=== PATIENT | female | born 1955 | race Caucasian/White ===

== ENCOUNTER 2020-09-25 13:47 | Emergency (ER) | payer OTHER ==
--- NOTE | 2020-09-25 15:28 | EDM.PDOC ---
ED HPI GENERAL MEDICAL PROBLEM - General Chief Complaint: Cardiovascular Problem Stated Complaint: LOW BP Time Seen by Provider: 09/25/20 15:10 Source of Information: Reports: Patient, Family, Old Records, RN History Limitations: Reports: No Limitations - History of Present Illness INITIAL COMMENTS - FREE TEXT/NARRATIVE: 64 yo female with chronic hypotension has midodrine to use prn. Lately, she has had to use it more than usual and it doesn't seem to be working. She has no other sx's of her low BP. She called her clinic and was told she had to go to the ER for this. She is on furosemide 40 mg daily and denies a hx of any renal dysfunction. No recent vomiting or diarrhea or pain or fever. Onset: Gradual Duration: Day(s):, Getting Worse Location: Reports: Generalized Quality: Reports: Other (no pain reported) Severity: Moderate Improves with: Reports: None Worsens with: Reports: Other (time) Context: Reports: Other (See HPI) Associated Symptoms: Reports: Malaise. Denies: Chest Pain, Fever/Chills, Nausea/Vomiting, Shortness of Breath, Syncope Treatments CHARGE ENTRY: Reports: Other (see below) (midodrine) - Related Data Allergies Allergy/AdvReac Type Severity Reaction Status Date / Time Penicillins Allergy Cannot Verified 09/25/20 14:30 Remember paper tapes Allergy Rash Uncoded 09/25/20 14:31 Home Meds: Home Meds Albuterol Sulfate [Proair Hfa] 2 puff INH Q4HR PRN 11/11/15 [History] Citalopram Hydrobromide [Celexa] 10 mg PO DAILY 11/11/15 [History] Fluticasone Propionate [Flonase] 2 spray NS DAILY 11/11/15 [History] Furosemide [Lasix] 40 mg PO DAILY 11/11/15 [History] Gabapentin [Neurontin] 600 mg PO TID 11/11/15 [History] Multivitamin [Multi-Vitamin Daily] 1 tab PO DAILY 11/11/15 [History] Simvastatin [Zocor] 40 mg PO BEDTIME 11/11/15 [History] metFORMIN [Glucophage] 1,000 mg PO BID 11/11/15 [History] traMADol [Ultram] 50 mg PO Q6HR PRN 11/11/15 [History] Apixaban [Eliquis] 5 mg PO DAILY 09/25/20 [History] Aspirin [Halfprin] 81 mg PO DAILY 09/25/20 [History] Digoxin 0.125 mg PO DAILY 09/25/20 [History] Iron Ps Cmplx/Vit B12/Fa [Poly-Iron 150 Forte] 1 cap PO DAILY 09/25/20 [History] Magnesium Oxide [Magnesium] 400 mg PO DAILY 09/25/20 [History] Midodrine 10 mg PO TID 09/25/20 [History] Potassium Chloride 40 meq PO DAILY 09/25/20 [History] Past Medical History HEENT History: Reports: None Cardiovascular History: Reports: Blood Clots/VTE/DVT, High Cholesterol, Other (See Below) Other Cardiovascular History: HYPOTENSION Respiratory History: Reports: PE, Sleep Apnea Genitourinary History: Reports: None 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: Musculoskeletal History: Reports: RA Neurological History: Reports: None Psychiatric History: Reports: Depression Endocrine/Metabolic History: Reports: Diabetes, Type II Hematologic History: Reports: Iron Deficiency Immunologic History: Reports: None Oncologic (Cancer) History: Reports: None Dermatologic History: Reports: Other (See Below) Other Dermatologic History: yeast infections under breast - Infectious Disease History Infectious Disease History: Reports: Chicken Pox, Measles, Mumps - Past Surgical History HEENT Surgical History: Reports: Tonsillectomy GI Surgical History: Reports: Bariatric Procedure, Cholecystectomy Female Surgical History: Reports: Tubal Ligation Musculoskeletal Surgical History: Reports: None Social & Family History - Tobacco Use Tobacco Use Status *Q: Current Every Day Tobacco User Years of Tobacco use: 40 Packs/Tins Daily: 1.5 - Caffeine Use Caffeine Use: Reports: Soda - Recreational Drug Use Recreational Drug Use: No ED ROS GENERAL - Review of Systems Review Of Systems: See Below Constitutional: Reports: Malaise HEENT: Reports: No Symptoms Respiratory: Reports: No Symptoms Cardiovascular: Reports: Blood Pressure Problem (low) Endocrine: Reports: No Symptoms GI/Abdominal: Reports: No Symptoms : Reports: No Symptoms Musculoskeletal: Reports: No Symptoms Skin: Reports: No Symptoms Neurological: Reports: No Symptoms Psychiatric: Reports: No Symptoms ED EXAM, GENERAL - Physical Exam Exam: See Below Exam Limited By: No Limitations General Appearance: Alert, WD/WN, No Apparent Distress, Obese Eye Exam: Bilateral Eye: Normal Inspection Ears: Normal External Exam, Normal Canal, Hearing Grossly Normal, Normal TMs Ear Exam: Bilateral Ear: Auricle Normal, Canal Normal, TM normal Nose: Normal Inspection, No Blood Throat/Mouth: Normal Inspection, Normal Lips, Normal Oropharynx, Normal Voice, No Airway Compromise Head: Atraumatic, Normocephalic Neck: Normal Inspection Respiratory/Chest: No Respiratory Distress, Lungs Clear, Normal Breath Sounds, No Accessory Muscle Use Cardiovascular: Regular Rate, Rhythm, No Edema GI/Abdominal: Normal Bowel Sounds, Soft, Non-Tender, No Distention Back Exam: Normal Inspection. No: CVA Tenderness (R), CVA Tenderness (L) Extremities: Normal Inspection, Normal Range of Motion, Non-Tender, No Pedal Edema Neurological: Alert, Oriented, CN II-XII Intact, Normal Cognition, No Motor/Sensory Deficits Psychiatric: Normal Affect, Normal Mood Skin Exam: Warm, Dry, Intact, Normal Color, No Rash #1 Interpretation EKG Date: 09/25/20 Time: 15:55 Rhythm: NSR Rate (Beats/Min): 61 [place]: Normal P-Wave: Present QRS: Normal ST-T: Normal QT: Normal Comparison: NA - No Prior EKG Course - Vital Signs Last Recorded V/S: Last Vital Signs Temp 37.1 C 09/25/20 14:38 Pulse 64 09/25/20 14:55 Resp 16 09/25/20 14:55 BP 94/46 L 09/25/20 14:55 Pulse Ox 99 09/25/20 14:55 - Orders/Labs/Meds Orders: Active Orders 24 hr Category Date Time Status Cardiac Monitoring [RC] .As Directed Care 09/25/20 15:37 Active EKG Documentation Completion [RC] ASDIRECTED Care 09/25/20 15:40 Active UA W/MICROSCOPIC [URIN] Stat Lab 09/25/20 14:58 Ordered EKG 12 Lead [EK] Routine Ther 09/25/20 15:40 Ordered Labs: Laboratory Tests 09/25/20 09/25/20 Range/Units 15:15 15:28 WBC 6.0 (4.5-11.0) K/uL RBC 4.43 (3.30-5.50) M/uL Hgb 13.5 (12.0-15.0) g/dL Hct 40.8 (36.0-48.0) % MCV 92 (80-98) fL MCH 31 (27-31) pg MCHC 33 (32-36) % Plt Count 282 (150-400) K/uL Sodium 142 (140-148) mmol/L Potassium 6.3 H* (3.6-5.2) mmol/L Chloride 104 (100-108) mmol/L Carbon Dioxide 27 (21-32) mmol/L Anion Gap 17.3 H (5.0-14.0) mmol/L BUN 8 (7-18) mg/dL Creatinine 1.0 (0.6-1.0) mg/dL Est Cr Clr Drug Dosing 59.13 mL/min Estimated GFR (MDRD) 56 L (>60) Glucose 123 H (74-106) mg/dL Calcium 9.3 (8.5-10.1) mg/dL Meds: Medications Discontinued Medications Generic Name Dose Route Start Last Admin Trade Name Freq PRN Reason Stop Dose Admin Sodium Polystyrene Sulfonate 30 gm 09/25/20 15:38 09/25/20 15:45 Sodium Polystyrene Sulfonate 15 Gm/60 Ml Susp 60 Ml Bot PO 09/25/20 15:39 30 gm ONETIME ONE Administration Departure - Departure Time of Disposition: 16:05 Disposition: Home, Self-Care 01 Condition: Fair Clinical Impression: Hyperkalemia Hypotension Qualifiers: Hypotension type: idiopathic hypotension Qualified Code(s): I95.0 - Idiopathic hypotension Instructions: Hyperkalemia, [id number], Hypotension, [id number] Referrals: PCP,None [Primary Care Provider] - Forms: ED Department Discharge Additional Instructions: Hold your potassium through the weekend. Reduce your furosemide to 40 mg every other day. Recheck in the clinic to have your BP rechecked and your potassium rechecked on Monday. Call for an appt. Return here as needed. Eat a low potassium diet through next Monday when seen. Sepsis Event Note (ED) - Evaluation Sepsis Screening Result: No Definite Risk - Focused Exam Vital Signs: Vital Signs Temp Pulse Resp BP Pulse Ox 09/25/20 14:55 64 16 94/46 L 99 09/25/20 14:38 37.1 C 100 19 97/50 L 99 - My Orders Last 24 Hours: My Active Orders 09/25/20 14:58 UA W/MICROSCOPIC [URIN] Stat 09/25/20 15:37 Cardiac Monitoring [RC] .As Directed 09/25/20 15:40 EKG Documentation Completion [RC] ASDIRECTED EKG 12 Lead [EK] Routine - Assessment/Plan Last 24 Hours: My Active Orders 09/25/20 14:58 UA W/MICROSCOPIC [URIN] Stat 09/25/20 15:37 Cardiac Monitoring [RC] .As Directed 09/25/20 15:40 EKG Documentation Completion [RC] ASDIRECTED EKG 12 Lead [EK] Routine
[2020-09-25] MEDS ORDERED: Sodium Polystyrene Sulfonate 15 GM/60 ML Susp 60 ML Bot PO ONE (15:38)
[2020-09-25 16:38] VITALS: BP 132/59; PULSE 72
== END 2020-09-25 16:40 | disposition home or self-care (01) ==
LOC: JP.ED 13:47
DX: I95.0 Idiopathic hypotension (principal); E87.5 Hyperkalemia; E78.00 Pure hypercholesterolemia, unspecified; E11.9 Type 2 diabetes mellitus without complications; M06.9 Rheumatoid arthritis, unspecified; Z88.0 Allergy status to penicillin; Z91.048 Other nonmedicinal substance allergy status; Z79.82 Long term (current) use of aspirin; Z79.01 Long term (current) use of anticoagulants; Z79.84 Long term (current) use of oral hypoglycemic drugs; Z79.899 Other long term (current) drug therapy; Z86.718 Personal history of other venous thrombosis and embolism; Z86.711 Personal history of pulmonary embolism
CPT/HCPCS: 36415; 80048; 85027; 93005; 99283; A9270; 99284

== ENCOUNTER 2020-12-07 11:34 | Emergency (ER) | payer OTHER ==
[2020-12-07] MEDS ORDERED: Sodium Chloride 0.9% 1,000 ML IV SCH (12:45)
--- NOTE | 2020-12-07 13:12 | EDM.PDOC ---
ED HPI GENERAL MEDICAL PROBLEM - General Chief Complaint: General Stated Complaint: WEAKNESS, DEHYDRATION Time Seen by Provider: 12/07/20 11:53 Source of Information: Reports: Patient History Limitations: Reports: No Limitations - History of Present Illness INITIAL COMMENTS - FREE TEXT/NARRATIVE: 64 yo female presents via EMS with weakness. This has progressively worsened over the last 2 weeks. She has had increase in falls. Her last fall was two days ago. Only injury was a bruise and scrape to her right lower leg. This AM she was to week to get off the toilet. She was hypotensive on arrival of EMS. this is not new for her but worse then her baseline. She also describes "seizure" events where she has body weakness and shaking and will fall/ lower herself to the floor. During these events she is aware of what is going on around her but cannot verbally respond, she does not loose continence during these episodes. They do make her very tired. She has chronic diarrhea. she denies SOB. Afebrile. - Related Data Allergies Allergy/AdvReac Type Severity Reaction Status Date / Time Penicillins Allergy Cannot Verified 12/07/20 11:42 Remember paper tapes Allergy Rash Uncoded 12/07/20 11:42 Home Meds: Home Meds Albuterol Sulfate [Proair Hfa] 2 puff INH Q4HR PRN 11/11/15 [History] Citalopram Hydrobromide [Celexa] 10 mg PO DAILY 11/11/15 [History] Fluticasone Propionate [Flonase] 2 spray NS DAILY 11/11/15 [History] Furosemide [Lasix] 40 mg PO DAILY 11/11/15 [History] Gabapentin [Neurontin] 600 mg PO TID 11/11/15 [History] Simvastatin [Zocor] 40 mg PO BEDTIME 11/11/15 [History] metFORMIN [Glucophage] 1,000 mg PO BID 11/11/15 [History] traMADol [Ultram] 50 mg PO Q6HR PRN 11/11/15 [History] Apixaban [Eliquis] 5 mg PO BID 09/25/20 [History] Aspirin [Halfprin] 81 mg PO DAILY 09/25/20 [History] Digoxin 0.125 mg PO DAILY 09/25/20 [History] Iron Ps Cmplx/Vit B12/Fa [Poly-Iron 150 Forte] 1 cap PO DAILY 09/25/20 [History] Magnesium Oxide [Magnesium] 400 mg PO DAILY 09/25/20 [History] Midodrine 10 mg PO TID PRN 09/25/20 [History] Past Medical History HEENT History: Reports: None Cardiovascular History: Reports: Blood Clots/VTE/DVT, High Cholesterol, Other (See Below) Other Cardiovascular History: HYPOTENSION Respiratory History: Reports: PE, Sleep Apnea Genitourinary History: Reports: None 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: Musculoskeletal History: Reports: RA Neurological History: Reports: None Psychiatric History: Reports: Depression Endocrine/Metabolic History: Reports: Diabetes, Type II Hematologic History: Reports: Iron Deficiency Immunologic History: Reports: None Oncologic (Cancer) History: Reports: None Dermatologic History: Reports: Other (See Below) Other Dermatologic History: yeast infections under breast - Infectious Disease History Infectious Disease History: Reports: Chicken Pox, Measles, Mumps - Past Surgical History HEENT Surgical History: Reports: Tonsillectomy GI Surgical History: Reports: Bariatric Procedure, Cholecystectomy Female Surgical History: Reports: Tubal Ligation Musculoskeletal Surgical History: Reports: None Social & Family History - Tobacco Use Tobacco Use Status *Q: Current Every Day Tobacco User Years of Tobacco use: 45 Packs/Tins Daily: 1 - Caffeine Use Caffeine Use: Reports: Soda - Recreational Drug Use Recreational Drug Use: No ED ROS GENERAL - Review of Systems Review Of Systems: See Below Constitutional: Reports: Malaise, Weakness, Fatigue. Denies: Fever Respiratory: Denies: Shortness of Breath, Wheezing Cardiovascular: Denies: Chest Pain GI/Abdominal: Reports: Diarrhea. Denies: Abdominal Pain, Nausea Skin: Denies: Rash ED EXAM, GENERAL - Physical Exam Exam: See Below Exam Limited By: No Limitations General Appearance: Alert, WD/WN, No Apparent Distress Head: Atraumatic, Normocephalic Neck: Normal Inspection, Supple, Non-Tender. No: Lymphadenopathy (R), Lymphadenopathy (L) Respiratory/Chest: No Respiratory Distress, Lungs Clear, Normal Breath Sounds, No Accessory Muscle Use, Chest Non-Tender GI/Abdominal: Soft, Non-Tender Back Exam: Normal Inspection, Full Range of Motion. No: CVA Tenderness (R), CVA Tenderness (L) Neurological: Alert, Oriented Psychiatric: Normal Affect, Normal Mood Skin Exam: Warm, Dry, Intact Course - Vital Signs Last Recorded V/S: Last Vital Signs Temp 36.2 C 12/07/20 11:37 Pulse 69 12/07/20 13:29 Resp 16 12/07/20 11:37 BP 99/45 L 12/07/20 13:29 Pulse Ox 100 12/07/20 11:37 - Orders/Labs/Meds Orders: Active Orders 24 hr Category Date Time Status CULTURE URINE [RM] Stat Lab 12/07/20 15:44 Ordered Sodium Chloride 0.9% [Normal Saline] 1,000 ml Med 12/07/20 12:45 Active IV ASDIRECTED Medication Orders Sodium Chloride (Normal Saline) 1,000 mls @ 500 mls/hr IV ASDIRECTED ANNE Last Admin: 12/07/20 12:51 Dose: 500 mls/hr Documented by: MARKEL Labs: Laboratory Tests 12/07/20 12/07/20 12/07/20 Range/Units 12:30 12:52 12:52 WBC 4.9 (4.5-11.0) K/uL RBC 3.49 (3.30-5.50) M/uL Hgb 10.8 L D (12.0-15.0) g/dL Hct 32.1 L (36.0-48.0) % MCV 92 (80-98) fL MCH 31 (27-31) pg MCHC 34 (32-36) % Plt Count 240 (150-400) K/uL Add Manual Diff Yes Neutrophils % (Manual) 67 H (36-66) % Band Neutrophils % 1 L (5-11) % Lymphocytes % (Manual) 27 (24-44) % Monocytes % (Manual) 5 (2-6) % Polychromasia Sodium 140 (140-148) mmol/L Potassium 4.9 (3.6-5.2) mmol/L Chloride 106 (100-108) mmol/L Carbon Dioxide 22 (21-32) mmol/L Anion Gap 11.6 (5.0-14.0) mmol/L BUN 9 (7-18) mg/dL Creatinine 1.4 H (0.6-1.0) mg/dL Est Cr Clr Drug Dosing 41.49 mL/min Estimated GFR (MDRD) 38 L (>60) Glucose 120 H (74-106) mg/dL Calcium 8.0 L (8.5-10.1) mg/dL Total Bilirubin 0.6 (0.2-1.0) mg/dL AST 26 (15-37) U/L ALT 21 (12-78) U/L Alkaline Phosphatase 103 (46-116) U/L Total Protein 4.9 L (6.4-8.2) g/dL Albumin 1.8 L (3.4-5.0) g/dL Globulin 3.1 (2.3-3.5) g/dL Albumin/Globulin Ratio 0.6 L (1.2-2.2) Urine Color Yellow (YELLOW) Urine Appearance Slightly cloudy A (CLEAR) Urine pH 5.5 (5.0-8.0) Ur Specific [place] 1.025 (1.008-1.030) Urine Protein Negative (NEGATIVE) mg/dL Urine Glucose (UA) Negative (NEGATIVE) mg/dL Urine Ketones Negative (NEGATIVE) mg/dL Urine Occult Blood Negative (NEGATIVE) Urine Nitrite Negative (NEGATIVE) Urine Bilirubin Negative (NEGATIVE) Urine Urobilinogen 0.2 (0.2-1.0) EU/dL Ur Leukocyte Esterase Negative (NEGATIVE) Urine RBC Not seen (0-5) Urine WBC 0-5 (0-5) Ur Epithelial Cells Moderate Amorphous Sediment Many Urine Bacteria Few Urine Mucus Many Meds: Medications Generic Name Dose Route Start Last Admin Trade Name Freq PRN Reason Stop Dose Admin Sodium Chloride 1,000 mls @ 500 mls/hr 12/07/20 12:45 12/07/20 12:51 Normal Saline IV 500 mls/hr ASDIRECTED [facility] Administration - Re-Assessments/Exams Free Text/Narrative Re-Assessment/Exam: 12/07/20 15:45 stable blood pressures after fluids. Extensive discussion had with pt and family regarding dehydration and acute kidney injury. We also discussed her hospital stay in [facility] earlier this year. 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 continues to have hypotension at home. pt able to ambulate without difficulty Departure - Departure Time of Disposition: 15:48 Disposition: Home, Self-Care 01 Condition: Good Clinical Impression: Acute kidney injury Hypotension Qualifiers: Hypotension type: idiopathic hypotension Qualified Code(s): I95.0 - Idiopathic hypotension - Discharge Information *PRESCRIPTION DRUG MONITORING PROGRAM REVIEWED*: Not Applicable *COPY OF PRESCRIPTION DRUG MONITORING REPORT IN PATIENT ENOC: Not Applicable Referrals: Polo Encarnacion MD [Primary Care Provider] - Forms: ED Department Discharge Additional Instructions: follow-up with your primary care provider this week increase fluid intake to minimum of 64 ounces per day Sepsis Event Note (ED) - Evaluation Sepsis Screening Result: No Definite Risk - Focused Exam Vital Signs: Vital Signs Temp Pulse Resp BP Pulse Ox 12/07/20 13:29 69 99/45 L 12/07/20 12:29 66 98/54 L 12/07/20 11:37 36.2 C 65 16 101/38 L 100 - My Orders Last 24 Hours: My Active Orders 12/07/20 12:45 Sodium Chloride 0.9% [Normal Saline] 1,000 ml IV ASDIRECTED 12/07/20 15:44 CULTURE URINE [RM] Stat - Assessment/Plan Last 24 Hours: My Active Orders 12/07/20 12:45 Sodium Chloride 0.9% [Normal Saline] 1,000 ml IV ASDIRECTED 12/07/20 15:44 CULTURE URINE [RM] Stat
[2020-12-07 13:52] VITALS: BP 99/45; PULSE 69
== END 2020-12-07 16:05 | disposition home or self-care (01) ==
LOC: JP.ED 11:34
DX: I95.0 Idiopathic hypotension (principal); N17.9 Acute kidney failure, unspecified; E78.00 Pure hypercholesterolemia, unspecified; E11.9 Type 2 diabetes mellitus without complications; Z72.0 Tobacco use; Z79.82 Long term (current) use of aspirin; Z79.01 Long term (current) use of anticoagulants; Z88.0 Allergy status to penicillin; Z91.09 Other allergy status, other than to drugs and biological substances
CPT/HCPCS: 36415; 80053; 81001; 85025; 87086; 99284; 99285; J7030

== ENCOUNTER 2021-02-15 17:24 | Emergency (ER) | payer OTHER ==
[2021-02-15] MEDS ORDERED: Sodium Chloride 0.9% 10 ML SDV IV ONE (17:35)
--- NOTE | 2021-02-15 18:31 | CRLCT ---
For Patients: As a result of the Century Cures Act, medical imaging exams and procedure reports are released immediately into your electronic medical record. You may view this report before your referring provider. If you have questions, please contact your health care provider. INDICATION: Change in mental status TECHNIQUE: CT head without contrast. COMPARISON: None FINDINGS: CSF spaces: Within normal limits for age. Brain parenchyma: The pretty-white differentiation is normal. No sign of mass, hemorrhage, or midline shift. Skull base and calvarium: The visualized paranasal sinuses and mastoid air cells demonstrate no acute or significant findings. The visualized orbits are grossly unremarkable. No skull fractures. IMPRESSION: Unremarkable noncontrast head CT. Dictated by Jamie Romero MD @ 02/15/2021 6:29:10 PM Please note that all CT scans at this facility use dose modulation, iterative reconstruction, and/or weight-based dosing when appropriate to reduce radiation dose to as low as reasonably achievable. Dictated by: Jamie Romero MD @ 02/15/2021 18:29:17 (Electronically Signed)
--- NOTE | 2021-02-15 18:31 | EDM.PDOC ---
ED HPI GENERAL MEDICAL PROBLEM - General Chief Complaint: General Stated Complaint: MEDICAL VIA [facility] Time Seen by Provider: 02/15/21 18:33 Source of Information: Reports: Patient, Family ( ) History Limitations: Reports: Altered Mental Status (decreased LOC) - History of Present Illness INITIAL COMMENTS - FREE TEXT/NARRATIVE: Mary is a 65 year old female whom presents to ER via EMS due to husbands concerns about decreased LOC. Mary has minimal activity for a number of months to year. Mary's assists her to a recliner, now broken and talks on phone and watch es TV all days and normally a bit confused every am. Mary reported feeling a bit ill on Monday with slight cough. Yesterday Mary slept most of the day with minimal activity with increased in behavior and acting out on Monday, she was allowed to sleep most of the day. work her up at 500 am per usual routine, she was tired as usual and cares provided but remained in bed. went to work but returned from work, which normal and found Mary very sleeping and limited activity and not arousable per usual. Mary is usually very sleepy in the morning but usually clears by the afternoon. found her even less responsive this afternoon evening which prompted ER visit. Mary's days are spent in bed with depends on and limited cares only am and pm by and none during the day. is a very poor historian daughters attempt to assist with details. Mary has a known pilonidal open sacral wound which has been bleeding per . called EMS this afternoon due to decreased level of response. Mary's medication are given by morning and night, Mary has not received medications Monday afternoon or today. Mary has refused previous attempts to bring her to the hospital for care and family's concerns. Mary is unable to communicate needs and family has been attempting to provider cares but too much to continue. Placement has been considered by family but not discussed with PCP in [facility]. Daughter recalls UTI in December which was treated with an oral antibiotic. Mary has not ambulated independently in years, 6 month ago was getting around the house using a wheeled walker with seat and self transfers, progressive weakness with very limited activity in the last 2 weeks, essential sitting in bed with am and pm cares by , before an after work. No report of wheelchair use. CODE STATUS: Full Code - Related Data Allergies Allergy/AdvReac Type Severity Reaction Status Date / Time Penicillins Allergy Cannot Verified 02/15/21 17:59 Remember paper tapes Allergy Rash Uncoded 02/15/21 17:59 Home Meds: Home Meds Albuterol Sulfate [Proair Hfa] 2 puff INH Q4HR PRN 11/11/15 [History] Citalopram Hydrobromide [Celexa] 10 mg PO DAILY 11/11/15 [History] Fluticasone Propionate [Flonase] 2 spray NS DAILY PRN 11/11/15 [History] Furosemide [Lasix] 40 mg PO DAILY 11/11/15 [History] Gabapentin [Neurontin] 600 mg PO TID 11/11/15 [History] Simvastatin [Zocor] 40 mg PO BEDTIME 11/11/15 [History] metFORMIN [Glucophage] 1,000 mg PO BID 11/11/15 [History] traMADol [Ultram] 50 mg PO Q6HR PRN 11/11/15 [History] Apixaban [Eliquis] 5 mg PO BID 09/25/20 [History] Aspirin [Halfprin] 81 mg PO DAILY 09/25/20 [History] Digoxin 0.125 mg PO DAILY 09/25/20 [History] Iron Ps Cmplx/Vit B12/Fa [Poly-Iron 150 Forte] 1 cap PO DAILY 09/25/20 [History] Magnesium Oxide [Magnesium] 400 mg PO DAILY 09/25/20 [History] Midodrine 10 mg PO TID PRN 02/15/21 [History] Past Medical History HEENT History: Reports: None Cardiovascular History: Reports: Blood Clots/VTE/DVT, High Cholesterol, Other (See Below) Other Cardiovascular History: HYPOTENSION Respiratory History: Reports: PE, Sleep Apnea Genitourinary History: Reports: None [employer] History: Reports: Musculoskeletal History: Reports: RA Neurological History: Reports: None Psychiatric History: Reports: Depression Endocrine/Metabolic History: Reports: Diabetes, Type II Hematologic History: Reports: Iron Deficiency Immunologic History: Reports: None Oncologic (Cancer) History: Reports: None Dermatologic History: Reports: Other (See Below) Other Dermatologic History: yeast infections under breast - Infectious Disease History Infectious Disease History: Reports: Chicken Pox, Measles, Mumps - Past Surgical History HEENT Surgical History: Reports: Tonsillectomy GI Surgical History: Reports: Bariatric Procedure, Cholecystectomy Female Surgical History: Reports: Tubal Ligation Musculoskeletal Surgical History: Reports: None Social & Family History - Tobacco Use Tobacco Use Status *Q: Current Every Day Tobacco User Years of Tobacco use: 45 Packs/Tins Daily: 1 - Caffeine Use Caffeine Use: Reports: Soda - Recreational Drug Use Recreational Drug Use: No ED ROS GENERAL - Review of Systems Review Of Systems: Unable To Obtain Reason Not Obtained: Decreased LOC non verbal ED EXAM, GENERAL - Physical Exam Exam: See Below Exam Limited By: Altered Mental Status (decreased LOC, responsive to pain) General Appearance: Lethargic, Obtunded Eye Exam: Bilateral Eye: Normal Inspection Ears: Normal External Exam, Normal Canal Nose: Normal Inspection Throat/Mouth: Normal Inspection (dry mouth and mucus membrane) Neck: Normal Inspection (sligth hypoxia noted, no history of oxygen needs. Course breath sounds with poor air movement noted. ) Respiratory/Chest: No Respiratory Distress, Decreased Breath Sounds, Other (sligth hypoxia noted, no history of oxygen needs. Course breath sounds with poor air movement noted. Supplemental oxygen given. ) Cardiovascular: Regular Rate, Rhythm, Tachycardia, Other (hypotension noted with SBP 77/43 after first liter of NS ordered by previous clinician) GI/Abdominal: Tender (possible discomfort to palpation noted, with verbal grun ting response with examination ) (Female) Exam: Other (swelling of labia with stool noted in vaginal vault. Very dark stool noted in depends. ) Back Exam: Other (open full thickness pressure wound over sacrum () reports form pilonidal cyst. Stool in woudn defect and scant bleeding noted. ) Extremities: Non-Tender, Pallor, Other (erythematous pressure sore right posterior calf. ) Neurological: Slow to Respond (with grunts and non verbal ) Psychiatric: Other Skin Exam: Cool, Pallor #1 Interpretation EKG Date: 02/15/21 Time: 17:23 Rhythm: NSR Rate (Beats/Min): 99 [place]: Normal P-Wave: Present QRS: Other ST-T: Other QT: Normal EKG Interpretation Comments: EKG reviewed: poor Lead II placement: repeat EKG requested at this time. 20:20 #2 Interpretation EKG Date: 02/15/21 Time: 20:39 Rhythm: NSR Rate (Beats/Min): 92 [place]: Other (Very low voltage limiting analysis available from EKG tracings.) P-Wave: Present QRS: Normal ST-T: Other (Very low voltage limiting analysis available from EKG tracings.) QT: Normal Comparison: No Change EKG Interpretation Comments: Very low voltage limiting analysis available from EKG tracings. Course - Vital Signs Last Recorded V/S: Last Vital Signs Temp 36.8 C 02/15/21 18:58 Pulse 93 02/15/21 18:19 Resp 21 H 02/15/21 18:58 BP 77/39 L 02/15/21 18:58 Pulse Ox 94 L 02/15/21 18:58 - Orders/Labs/Meds Orders: Active Orders 24 hr Category Date Time Status Blood Glucose Check, Bedside [RC] ONETIME Care 02/15/21 21:30 Active Blood Glucose Check, Bedside [RC] ONETIME Care 02/15/21 21:45 Active Vital Signs [RC] Q1H Care 02/15/21 18:58 Active CXR [Chest 1V Frontal] [CR] Stat Exams 02/15/21 19:00 Taken CORONAVIRUS COVID-19 RAPID [MOLEC] Stat Lab 02/15/21 20:27 Ordered CULTURE BLOOD [BC] Urgent Lab 02/15/21 07:05 Received CULTURE BLOOD [BC] Urgent Lab 02/15/21 07:20 Received CULTURE URINE [RM] Routine Lab 02/15/21 19:37 Received Sodium Chloride 0.9% [Normal Saline] 1,000 ml Med 02/15/21 19:00 Active IV ASDIRECTED Sodium Chloride 0.9% [Normal Saline] 1,000 ml Med 02/15/21 21:30 Active IV ASDIRECTED Blood Culture x2 Reflex Set [OM.PC] Urgent Oth 02/15/21 18:58 Ordered Medication Orders Sodium Chloride (Normal Saline) 1,000 mls @ 500 mls/hr IV ASDIRECTED [facility] Last Admin: 02/15/21 19:01 Dose: 500 mls/hr Documented by: CT Sodium Chloride (Normal Saline) 1,000 mls @ 150 mls/hr IV ASDIRECTED [facility] Labs: Laboratory Tests 02/15/21 02/15/21 02/15/21 Range/Units 17:41 17:59 17:59 WBC 13.7 H (4.5-11.0) K/uL RBC 3.03 L (3.30-5.50) M/uL Hgb 10.5 L (12.0-15.0) g/dL Hct 33.0 L (36.0-48.0) % MCV 109 H (80-98) fL MCH 35 H (27-31) pg MCHC 32 (32-36) % Plt Count 464 H (150-400) K/uL Sodium 135 L (140-148) mmol/L Potassium 5.7 H (3.6-5.2) mmol/L Chloride 100 (100-108) mmol/L Carbon Dioxide 26 (21-32) mmol/L Anion Gap 14.7 H (5.0-14.0) mmol/L BUN 22 H D (7-18) mg/dL Creatinine 2.1 H (0.6-1.0) mg/dL Est Cr Clr Drug Dosing 29.27 mL/min Estimated GFR (MDRD) 24 L (>60) Glucose 77 (74-106) mg/dL POC Glucose 82 (74-106) mg/dL Lactic Acid (0.4-2.0) mmol/L Calcium 8.0 L (8.5-10.1) mg/dL Magnesium (1.8-2.4) mg/dL Total Bilirubin 1.3 H D (0.2-1.0) mg/dL AST 24 (15-37) U/L ALT 13 (12-78) U/L Alkaline Phosphatase 188 H D (46-116) U/L Ammonia (11-32) umol/L C-Reactive Protein (0.0-0.3) mg/dL Total Protein 5.2 L (6.4-8.2) g/dL Albumin 1.2 L (3.4-5.0) g/dL Globulin 4.0 H (2.3-3.5) g/dL Albumin/Globulin Ratio 0.3 L (1.2-2.2) Urine Color (YELLOW) Urine Appearance (CLEAR) Urine pH (5.0-8.0) Ur Specific [place] (1.008-1.030) Urine Protein (NEGATIVE) mg/dL Urine Glucose (UA) (NEGATIVE) mg/dL Urine Ketones (NEGATIVE) mg/dL Urine Occult Blood (NEGATIVE) Urine Nitrite (NEGATIVE) Urine Bilirubin (NEGATIVE) Urine Urobilinogen (0.2-1.0) EU/dL Ur Leukocyte Esterase (NEGATIVE) Urine RBC (0-5) Urine WBC (0-5) Ur Epithelial Cells Amorphous Sediment Urine Bacteria Urine Mucus Urine Other Digoxin (0.90-2.00) ng/mL Ethyl Alcohol mg/dL 02/15/21 02/15/21 02/15/21 Range/Units 17:59 17:59 18:58 WBC (4.5-11.0) K/uL RBC (3.30-5.50) M/uL Hgb (12.0-15.0) g/dL Hct (36.0-48.0) % MCV (80-98) fL MCH (27-31) pg MCHC (32-36) % Plt Count (150-400) K/uL Sodium (140-148) mmol/L Potassium (3.6-5.2) mmol/L Chloride (100-108) mmol/L Carbon Dioxide (21-32) mmol/L Anion Gap (5.0-14.0) mmol/L BUN (7-18) mg/dL Creatinine (0.6-1.0) mg/dL Est Cr Clr Drug Dosing mL/min Estimated GFR (MDRD) (>60) Glucose (74-106) mg/dL POC Glucose (74-106) mg/dL Lactic Acid 1.4 (0.4-2.0) mmol/L Calcium (8.5-10.1) mg/dL Magnesium (1.8-2.4) mg/dL Total Bilirubin (0.2-1.0) mg/dL AST (15-37) U/L ALT (12-78) U/L Alkaline Phosphatase (46-116) U/L Ammonia 35 H (11-32) umol/L C-Reactive Protein (0.0-0.3) mg/dL Total Protein (6.4-8.2) g/dL Albumin (3.4-5.0) g/dL Globulin (2.3-3.5) g/dL Albumin/Globulin Ratio (1.2-2.2) Urine Color (YELLOW) Urine Appearance (CLEAR) Urine pH (5.0-8.0) Ur Specific [place] (1.008-1.030) Urine Protein (NEGATIVE) mg/dL Urine Glucose (UA) (NEGATIVE) mg/dL Urine Ketones (NEGATIVE) mg/dL Urine Occult Blood (NEGATIVE) Urine Nitrite (NEGATIVE) Urine Bilirubin (NEGATIVE) Urine Urobilinogen (0.2-1.0) EU/dL Ur Leukocyte Esterase (NEGATIVE) Urine RBC (0-5) Urine WBC (0-5) Ur Epithelial Cells Amorphous Sediment Urine Bacteria Urine Mucus Urine Other Digoxin (0.90-2.00) ng/mL Ethyl Alcohol < 3 mg/dL 02/15/21 02/15/21 02/15/21 Range/Units 18:58 19:37 21:30 WBC (4.5-11.0) K/uL RBC (3.30-5.50) M/uL Hgb (12.0-15.0) g/dL Hct (36.0-48.0) % MCV (80-98) fL MCH (27-31) pg MCHC (32-36) % Plt Count (150-400) K/uL Sodium (140-148) mmol/L Potassium (3.6-5.2) mmol/L Chloride (100-108) mmol/L Carbon Dioxide (21-32) mmol/L Anion Gap (5.0-14.0) mmol/L BUN (7-18) mg/dL Creatinine (0.6-1.0) mg/dL Est Cr Clr Drug Dosing mL/min Estimated GFR (MDRD) (>60) Glucose (74-106) mg/dL POC Glucose (74-106) mg/dL Lactic Acid (0.4-2.0) mmol/L Calcium (8.5-10.1) mg/dL Magnesium (1.8-2.4) mg/dL Total Bilirubin (0.2-1.0) mg/dL AST (15-37) U/L ALT (12-78) U/L Alkaline Phosphatase (46-116) U/L Ammonia (11-32) umol/L C-Reactive Protein 15.01 H (0.0-0.3) mg/dL Total Protein (6.4-8.2) g/dL Albumin (3.4-5.0) g/dL Globulin (2.3-3.5) g/dL Albumin/Globulin Ratio (1.2-2.2) Urine Color Yellow (YELLOW) Urine Appearance Turbid A (CLEAR) Urine pH 7.0 (5.0-8.0) Ur Specific [place] 1.025 (1.008-1.030) Urine Protein 100 H (NEGATIVE) mg/dL Urine Glucose (UA) Negative (NEGATIVE) mg/dL Urine Ketones Trace H (NEGATIVE) mg/dL Urine Occult Blood Negative (NEGATIVE) Urine Nitrite Negative (NEGATIVE) Urine Bilirubin Moderate H (NEGATIVE) Urine Urobilinogen 1.0 (0.2-1.0) EU/dL Ur Leukocyte Esterase Large H (NEGATIVE) Urine RBC 0-5 (0-5) Urine WBC Packed H (0-5) Ur Epithelial Cells Few Amorphous Sediment Few Urine Bacteria Many Urine Mucus Moderate Urine Other See note Digoxin 3.13 H (0.90-2.00) ng/mL Ethyl Alcohol mg/dL 02/15/21 02/15/21 Range/Units 21:41 21:47 WBC (4.5-11.0) K/uL RBC (3.30-5.50) M/uL Hgb (12.0-15.0) g/dL Hct (36.0-48.0) % MCV (80-98) fL MCH (27-31) pg MCHC (32-36) % Plt Count (150-400) K/uL Sodium (140-148) mmol/L Potassium (3.6-5.2) mmol/L Chloride (100-108) mmol/L Carbon Dioxide (21-32) mmol/L Anion Gap (5.0-14.0) mmol/L BUN (7-18) mg/dL Creatinine (0.6-1.0) mg/dL Est Cr Clr Drug Dosing mL/min Estimated GFR (MDRD) (>60) Glucose (74-106) mg/dL POC Glucose 86 (74-106) mg/dL Lactic Acid (0.4-2.0) mmol/L Calcium (8.5-10.1) mg/dL Magnesium 2.3 (1.8-2.4) mg/dL Total Bilirubin (0.2-1.0) mg/dL AST (15-37) U/L ALT (12-78) U/L Alkaline Phosphatase (46-116) U/L Ammonia (11-32) umol/L C-Reactive Protein (0.0-0.3) mg/dL Total Protein (6.4-8.2) g/dL Albumin (3.4-5.0) g/dL Globulin (2.3-3.5) g/dL Albumin/Globulin Ratio (1.2-2.2) Urine Color (YELLOW) Urine Appearance (CLEAR) Urine pH (5.0-8.0) Ur Specific [place] (1.008-1.030) Urine Protein (NEGATIVE) mg/dL Urine Glucose (UA) (NEGATIVE) mg/dL Urine Ketones (NEGATIVE) mg/dL Urine Occult Blood (NEGATIVE) Urine Nitrite (NEGATIVE) Urine Bilirubin (NEGATIVE) Urine Urobilinogen (0.2-1.0) EU/dL Ur Leukocyte Esterase (NEGATIVE) Urine RBC (0-5) Urine WBC (0-5) Ur Epithelial Cells Amorphous Sediment Urine Bacteria Urine Mucus Urine Other Digoxin (0.90-2.00) ng/mL Ethyl Alcohol mg/dL Meds: Medications Generic Name Dose Route Start Last Admin Trade Name Freq PRN Reason Stop Dose Admin Sodium Chloride 1,000 mls @ 500 mls/hr 02/15/21 19:00 02/15/21 19:01 Normal Saline IV 500 mls/hr ASDIRECTED ANNE Administration Sodium Chloride 1,000 mls @ 150 mls/hr 02/15/21 21:30 Normal Saline IV ASDIRECTED ANNE Discontinued Medications Generic Name Dose Route Start Last Admin Trade Name Freq PRN Reason Stop Dose Admin Meropenem 1 gm/ Sodium 100 mls @ 200 mls/hr 02/15/21 19:39 02/15/21 20:07 Chloride IV 02/15/21 20:08 200 mls/hr ONETIME ONE Administration Vancomycin HCl 1 gm/ Sodium 250 mls @ 150 mls/hr 02/15/21 19:39 02/15/21 20:08 Chloride IV 02/15/21 21:18 150 mls/hr ONETIME ONE Administration Naloxone HCl 0.1 mg 02/15/21 18:36 02/15/21 18:51 Naloxone 0.4 Mg/Ml Sdv IVPUSH 0.1 mg ONETIME PRN Administration Hypotension Sodium Chloride 1,000 ml 02/15/21 17:35 02/15/21 18:50 Sodium Chloride 0.9% 10 Ml Sdv IV 02/15/21 17:36 1,000 ml ONETIME ONE Administration - Re-Assessments/Exams Free Text/Narrative Re-Assessment/Exam: Narcan given without acute change. Previous provider was concerned about gabapentin over dose. Called [facility] for transfer regarding transfer no answer, return phone call reporting not taking any or discussing any possible transfers until tomorrow. [facility] has no ICU beds at this time. Updated family about severity of acute illness due to sepsis, bacteria in the blood stream likely from urinary source infection. 2 liter of NS given with improvement of blood pressure to SBP 130/82 with second bolus, Norepi drip on hold at this time but will be considered if blood pressure decreases. Family OK with transfer to to [facility] if bed available at this time. 02/15/21 19:45 [facility] called about transfer at this time, on hold to see if bed is available at this time. No bed available at this time. 02/15/21 20:11 Called [facility] ICU staff line [phone] head not acute concerning findings. CXR left pleural effusion with slight haziness right lung base with limitations due to portable technique. 02/15/21 20:[address] head and blood work with urine testing with family in addition to work findings bed placement at this time. Reviewed current test results and consider Digoxin levels and Magnesium levels for further evaluation of decreased LOC. 02/15/21 20:26 Vitals remain stable without pressure support at this time. SBP 103 with mean pressure of 70 with underlying history of low blood pressures. Patient continues to have decreased LOC. Concern from possible Dig toxicity in light of decreased LOC and elevated potassium. Magnesium test ordered and pending. 02/15/21 21:23 Called [facility] ICU staff line [phone] regarding bed placement. No encouraging leads for possible placement at this time. Called [facility] for transfer placement . Dr Carrizales to discuss possible transfer at this time. Return phone call expected to discuss possible placement. 02/15/21 21:31 Return phone call from [facility] and unable to take transfer at this time. Calling [facility] [place] , [place] clinician taking admissions, but pending alternative placement options at this time. Return phone call expected. COVID test pending at this time but unlikely due to limited symptoms and activity outside the home. 02/15/21 21:50 Return phone call from [facility] whom accepts transfer to ICU bed at this time, calling for transport at this time. Family is updated regarding placement and plan to transport. No need for pressure support at this time but may still be considered. 02/15/21 22:15 Departure - Departure Time of Disposition: 23:00 Disposition: DC/Tfer to Acute Hospital 02 Condition: Critical Clinical Impression: Sepsis, Urinary tract infection, Acute kidney injury, Elevated digoxin level, Encephalopathy acute Hypotension Qualifiers: Hypotension type: idiopathic hypotension Qualified Code(s): I95.0 - Idiopathic hypotension - Discharge Information Referrals: PCP,None [Primary Care Provider] - Forms: ED Department Discharge Sepsis Event Note (ED) - Evaluation Sepsis Screening Result: No Definite Risk - Focused Exam Vital Signs: Vital Signs Temp Pulse Resp BP Pulse Ox 02/15/21 18:58 36.8 C 21 H 77/39 L 94 L 02/15/21 18:19 37.1 C 93 17 81/44 L 98 02/15/21 18:09 36.4 C 62 20 81/44 L 80 L 02/15/21 17:31 36.4 C 62 20 81/44 L 80 L - My Orders Last 24 Hours: My Active Orders 02/15/21 07:05 CULTURE BLOOD [BC] Urgent 02/15/21 07:20 CULTURE BLOOD [BC] Urgent 02/15/21 18:58 Vital Signs [RC] Q1H Blood Culture x2 Reflex Set [OM.PC] Urgent 02/15/21 19:00 CXR [Chest 1V Frontal] [CR] Stat Sodium Chloride 0.9% [Normal Saline] 1,000 ml IV ASDIRECTED 02/15/21 19:37 CULTURE URINE [RM] Routine 02/15/21 20:27 CORONAVIRUS COVID-19 RAPID [MOLEC] Stat 02/15/21 21:30 Blood Glucose Check, Bedside [RC] ONETIME Sodium Chloride 0.9% [Normal Saline] 1,000 ml IV ASDIRECTED 02/15/21 21:45 Blood Glucose Check, Bedside [RC] ONETIME - Assessment/Plan Last 24 Hours: My Active Orders 02/15/21 07:05 CULTURE BLOOD [BC] Urgent 02/15/21 07:20 CULTURE BLOOD [BC] Urgent 02/15/21 18:58 Vital Signs [RC] Q1H Blood Culture x2 Reflex Set [OM.PC] Urgent 02/15/21 19:00 CXR [Chest 1V Frontal] [CR] Stat Sodium Chloride 0.9% [Normal Saline] 1,000 ml IV ASDIRECTED 02/15/21 19:37 CULTURE URINE [RM] Routine 02/15/21 20:27 CORONAVIRUS COVID-19 RAPID [MOLEC] Stat 02/15/21 21:30 Blood Glucose Check, Bedside [RC] ONETIME Sodium Chloride 0.9% [Normal Saline] 1,000 ml IV ASDIRECTED 02/15/21 21:45 Blood Glucose Check, Bedside [RC] ONETIME
[2021-02-15] MEDS ORDERED: Naloxone 0.4 MG/ML SDV IVPUSH PRN (18:36)
[2021-02-15] MEDS ORDERED: Sodium Chloride 0.9% 1,000 ML IV SCH ×2 (19:00→21:30)
[2021-02-15] MEDS ORDERED: Meropenem 1 GM in Sodium Chloride 0.9% 100 ML IV ONE (19:39)
[2021-02-15 23:21] VITALS: PULSE 90
[2021-02-15 23:28] VITALS: BP 103/48
--- NOTE | 2021-02-16 09:25 | CR ---
CHEST: Portable 02/15/2021 at 7:19 PM CLINICAL HISTORY:Sepsis COMPARISON:None FINDINGS: Patient has a large left pleural effusion. There is patchy density in the right lower lung field. There is generalized prominence of the lung markings some of which is chronic. Impression: Large left pleural effusion Patchy right lower lobe infiltrate Generalized increase in the right lung markings may be in part chronic but superimposed pneumonitis is not excluded..
== END 2021-02-15 23:30 ==
LOC: JP.ED 17:24
DX: A41.9 Sepsis, unspecified organism (principal); R65.20 Severe sepsis without septic shock; N17.9 Acute kidney failure, unspecified; G93.40 Encephalopathy, unspecified; N39.0 Urinary tract infection, site not specified; R89.2 Abnormal level of other drugs, medicaments and biological substances in specimens from other organs, systems and tissues; I95.0 Idiopathic hypotension; E11.9 Type 2 diabetes mellitus without complications; E78.00 Pure hypercholesterolemia, unspecified; Z79.82 Long term (current) use of aspirin; Z88.0 Allergy status to penicillin; Z79.84 Long term (current) use of oral hypoglycemic drugs; Z72.0 Tobacco use; Z79.899 Other long term (current) drug therapy
CPT/HCPCS: 36415; 70450; 71045; 80053; 80162; 80307; 81001; 82140; 82947; 83605; 83735; 85027; 86140; 87040; 87086; 87088; 87186; 87635; 96365; 96366; 96368; 96375; 99285; J1162; J2185; J2310; J3370; J7030; J7050; 87077; U0002